=== PATIENT | male | born 1990 | race Caucasian/White ===

== ENCOUNTER 2022-12-26 19:31 | Emergency (ER) | payer OTHER, SELFPAY ==
[2022-12-26 20:00] VITALS: BP 146/85; PULSE 103; RESP 20; TEMP 37; O2SAT 94; BMI 56.0
[2022-12-26 21:45] VITALS: BP 160/87; PULSE 92; RESP 17; TEMP 37.1; O2SAT 95
--- NOTE | 2022-12-26 22:01 | XRR_ITS ---
PROCEDURE INFORMATION: Exam: XR Right Ankle Exam date and time: 12/26/2022 10:31 PM Age: 32 years old Clinical indication: Injury or trauma; Other: Previous injury; Additional info: Fall, pop HX of achilles repair TECHNIQUE: Imaging protocol: Radiologic exam of the right ankle. Views: 3 or more views. COMPARISON: No relevant prior studies available. FINDINGS: Bones/joints: The ankle mortise is intact with no fracture or dislocation noted. Soft tissues: Normal. Other findings: There is degenerative disease noted. XR/XR ankle RT min 3V* [id number] IMPRESSION: No acute disease noted..
[2022-12-26] MEDS: oxyCODONE-APAP 5-325 mg Tablet 2 TAB PO (23:18)
--- NOTE | 2022-12-28 03:49 | ED_ITS ---
HPI - Extremity Problem General: Chief complaint: Extremity Injury, Lower Stated complaint: right foot pain Time Seen by Provider: 12/26/22 21:51 Source: patient History of Present Illness: 32-year-old male with a prior history of right Achilles injury in the past. It was not repaired surgically. He had been fully recovered. He missed took a step earlier, and injured it again. He heard a pop. He has swelling and pain to the Achilles region of his right ankle MD Complaint: extremity pain and extremity swelling Associated symptoms: Deny fever(s) Review of Systems Const: Denies: fever(s) Musc: Denies: neck pain or back pain Neuro: Denies: headache(s) Physical Exam Const: GENERAL APPEARANCE: cooperative; not ill appearing and not frail appearing Eye: COMMON NORMALS: Equal, round and reactive pupils present and EOMs intact bilaterally PUPIL: Yes Equal, round and reactive pupils present Neck/C-Spine: GENERAL: Yes trachea midline Chest: CHEST: Yes Symmetrical chest wall rise Resp: COMMON NORMALS: normal respiratory effort and No use of accessory muscles Cardio: COMMON NORMALS: regular rate and regular rhythm RATE: regular rate RHYTHM: regular rhythm Extremity: NARRATIVE EXTREMITY EXAM: Exam reveals significant tenderness over the Achilles insertion. There is soft tissue swelling surrounding. Corey's test is positive. No other deformity. Neuro: HODAN COMA SCALE: document GCS findings [place] coma scale eye opening: Spontaneous Hodan coma scale verbal response: Orientated Hodan coma scale motor response: Obey commands [place] coma scale total score: 15 Course Vital Signs: Vital signs: Vital Signs Temperature 98.7 F 12/26/22 21:45 Pulse Rate 92 12/26/22 21:45 Respiratory Rate 17 12/26/22 21:45 Blood Pressure 160/87 12/26/22 21:45 Pulse Oximetry 95 12/26/22 21:45 Oxygen Delivery Me thod Room Air 12/26/22 21:45 MDM - Extremity (Nontraumatic) Medical Decision Making 32-year-old male with likely Achilles injury. He is exquisitely tender over his Achilles insertion. Corey test is somewhat positive. X-ray shows no acute bony injury, but soft tissue swelling surrounding the Achilles with what appears to be to be interruption in the normal soft tissue appearance of the Achilles by x-ray. He is placed in a posterior short leg splint in equinus, given crutches, and asked to follow-up with orthopedics. Lab Data Radiology Impressions Ankle X-Ray 12/26/22 22:01 IMPRESSION: No acute disease noted.. Discharge Plan Discharge Patient Disposition: Home Clinical Impression: Strain of Achilles tendon Condition: Stable Prescriptions: New hydrocodone-acetaminophen 5-325 mg tablet 1 tab PO Q8H PRN (Reason: pain) Qty: 7 0RF Discharge Orders: Discharge ED (Routine); Ordered 12/26/22 Ordered By: Jai Lozano Patient Instructions: Achilles Tendon Rupture (ED), Opioid Safety, Pain Management Activity Restrictions/Additional Instructions: You may toe-touch in your splint using crutches to bear weight. Case management will call you at the beginning of the week with an orthopedic clinic appointment. If you do not hear from them by then, call [phone] and ask for the complex case manager during normal business hours. Ice for pain. Take anti- inflammatory pain medication. Pain medication for severe pain. 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
--- NOTE | 2022-12-29 07:33 | DCPLANNER ---
Addendum entered by Diamond Jerry 12/29/22 14:14: senior tax manager received the following message from the ortho clinic regarding followup appointment: Patient stated he wishes to use workmans comp instead of his personal insurance. Podiatry does not take workmans compensation/had ortho review and they stated they do not treat this issue. Please refer out. Thank you!!! On 12/29/22 @ 10:12 Dalia Arellano Wrote To Orthopedic Front Offfice Dalia Arellano completed item. On 12/29/22 @ 10:12 Dalia Arellano Wrote To Orthopedic Front Offfice Pt seeing Dr. Flores today pt aware senior tax manager called patient and explained to patient that he would need to be referred out to another provider, that he would need to speak with his employer. Patient is supposed to speak with his employer, and when he finds out where his employer wants him to follow up with, then he will call returned case inspector back so that records can be sent. Original Note: senior tax manager had message to schedule a follow up appointment for patient with ortho. senior tax manager sent patients information to the front office staff at ortho. Patients information will be printed and reviewed. Clinic will call patient with appointment information.
--- NOTE | 2022-12-29 12:11 | DCPLANNER ---
resource development manager was triggered to call patient due to no primary care physician - patient does not live in the area.
== END 2022-12-26 23:32 | disposition home or self-care (01) ==
PROVIDERS: Emergency Provider Emergency Medicine
DX: S86.011A Strain of right Achilles tendon, initial encounter (principal); X50.1XXA Overexertion from prolonged static or awkward postures, initial encounter
CPT/HCPCS: 73610; 99283; E0114